=== PATIENT | female | born 1945 | race Caucasian/White ===

== ENCOUNTER 2021-07-11 22:27 | Outpatient (REF) | payer MEDICARE, SELFPAY | END 2021-07-11 22:28 | disposition home or self-care (01) | LOC: LBN 22:27 | PROVIDERS: Visit Provider Physician Assistant Medical | DX: L72.3 Sebaceous cyst (principal) | CPT/HCPCS: 87070; 87205 ==

== ENCOUNTER 2022-05-18 10:52 | Emergency (ER) | payer MEDICARE, BC, SELFPAY ==
[2022-05-18] VITALS (11 sets, daily range): BP systolic 125–151; BP diastolic 55–63; PULSE 50–68; RESP 12–20; TEMP 36.4–36.6; O2SAT 93–98
--- NOTE | 2022-05-18 10:45 | RT.EKG_ITS ---
APPROVED REPORT Exam: Resting ECG Reason for Exam: DIZZINESS Patient Location: E HR:56 bpm ECG Measurements Heart Rate 56 AXIS MT 210 P 48 QRSd 98 QRS 21 QT 438 T 47 QTc 421 Conclusion Sinus bradycardia...rate< 60
--- NOTE | 2022-05-18 11:09 | ED.GENADUL_ITS ---
Discharge Plan Disposition Patient Disposition: HOME Condition: Stable Discharge Details Clinical Impression: Dizziness Primary Care Provider: None,None ED Provider: Leydi Carbone Home Meds and New Rx's Prescriptions: New meclizine 25 mg tablet 25 mg PO BID PRN (Reason: dizziness) Qty: 14 0RF Rx Instructions: Take one tablet up to three times a day as needed for dizziness Discharge Instructions Instructions: Dizziness (ED) Additional Instructions: CT shows a possible small right posterior lobe stroke. At this time labs are largely within normal limits please take the meclizine up to 3 times daily as needed for dizziness. Follow up with primary care provider in 3-5 days. Return to ED sooner if any worsening or concerns. Increase oral fluids. Medical Decision Making 76-year-old female presents to the ER via EMS with a chief complaint of dizziness for the last 4 days. She is alert and oriented x4. She reports that she also has a slight headache and some nausea. She describes her headache as pressure. She states that she will when she stands up she is dizzy enough to where she has to hold onto the wall. Work-up ordered including EKG, serial troponins, head CT, meclizine and urinalysis. CT head within normal limits. CBC shows no leukocytosis no anemia, CMP largely within normal limits. BUN 20 creatinine 1.0 GFR 33 glucose is 114. Initial troponin within normal limits. Discussed results with patient and follow up care. Patient prescribed meclizine discuss strict return instructions follow-up care. Verbalized understanding. Patient states that she feels much better after the meclizine. This text was generated using [employer] system, please disregard any oddities of phrase or misspellings. Medical Records Medical records reviewed: Yes I reviewed the patient's medical records. Lab Data Lab results reviewed: Yes I reviewed the patient's lab results. Labs: Laboratory Tests Range/Units 05/18/22 05/18/22 05/18/22 11:00 11:00 13:08 WBC (4.4-10.8) 10^3/uL 5.93 RBC (3.93-5.22) 10^6/uL 4.21 Hgb (11.2-15.7) g/dL 14.1 Hct (36.0-46.0) % 42.4 MCV (80-95) fL 101 H MCH (27.0-33.0) pg 33.5 H MCHC (32.0-36.0) % 33.3 RDW (11.7-14.6) % 13.2 Plt Count (130-400) 10^3/uL 205 MPV (8.0-11.0) fL 10.3 Immature Gran % 0.2 Neutrophils % 62.3 Lymphocytes % 25.5 Monocytes % 9.6 Eosinophils % 1.7 Basophils % 0.7 Nucleated RBC % (0.0-0.3) % 0.0 Absolute Neutrophils (1.2-6.7) 10^3/uL 3.70 Absolute Lymphocytes (1.2-3.4) 10^3/uL 1.51 Absolute Monocytes (0.1-0.8) 10^3/uL 0.57 Absolute Eosinophils (0.0-0.7) 10^3/uL 0.10 Absolute Basophils (0.0-0.2) 10^3/uL 0.04 Sodium (136-145) mmol/L 141 Potassium (3.5-5.1) mmol/L 4.1 Chloride (98-107) mmol/L 107 Carbon Dioxide (21.0-32.0) mmol/L 27.0 Anion Gap (3-11) mmol/L 7.0 BUN (7-18) mg/dL 20 H Creatinine (0.55-1.02) mg/dL 1.0 Estimated GFR/1.73 m2 (mL/min/1.73m2) 53.62 Glucose (74-106) mg/dL 114 H Calcium (8.5-10.1) mg/dL 8.9 Magnesium (1.8-2.4) mg/dL 1.8 Total Bilirubin (0.2-1.0) mg/dL 0.6 AST (15-37) U/L 23 ALT (14-59) U/L 31 Alkaline Phosphatase (46-116) U/L 88 Troponin I (<or=60) ng/L < 50 Total Protein (6.4-8.2) g/dL 7.5 Albumin (3.4-5.0) g/dL 3.6 Urine Color (Yellow) Yellow Urine Clarity (Clear) Clear Urine pH (5-8) 6.0 Ur Specific Veteran (1.005-1.025) >= 1.030 H Urine Protein (Negative) mg/dL Negative Urine Ketones (Negative) mg/dL Negative Urine Blood (Negative) Negative Urine Nitrite (Negative) Negative Urine Bilirubin (Negative) Negative Urine Urobilinogen (Up TO 0.2) EU/dL 0.2 Ur Leukocyte Esterase (Negative) Trace H Urine RBC (0-2) HPF 0-2 Urine WBC (0-5) HPF 5-10 Ur Epithelial Cells (Negative) HPF Moderate Urine Crystals (Negative) HPF Negative Urine Bacteria (Negative) HPF Few Urine Casts (Negative) LPF Negative Urine Mucus (Negative) Negative Ur Culture Indicated? No/Sq. Contamination Urine Glucose (Negative) mg/dL Negative Range/Units 05/18/22 14:15 WBC (4.4-10.8) 10^3/uL RBC (3.93-5.22) 10^6/uL Hgb (11.2-15.7) g/dL Hct (36.0-46.0) % MCV (80-95) fL MCH (27.0-33.0) pg MCHC (32.0-36.0) % RDW (11.7-14.6) % Plt Count (130-400) 10^3/uL MPV (8.0-11.0) fL Immature Gran % Neutrophils % Lymphocytes % Monocytes % Eosinophils % Basophils % Nucleated RBC % (0.0-0.3) % Absolute Neutrophils (1.2-6.7) 10^3/uL Absolute Lymphocytes (1.2-3.4) 10^3/uL Absolute Monocytes (0.1-0.8) 10^3/uL Absolute Eosinophils (0.0-0.7) 10^3/uL Absolute Basophils (0.0-0.2) 10^3/uL Sodium (136-145) mmol/L Potassium (3.5-5.1) mmol/L Chloride (98-107) mmol/L Carbon Dioxide (21.0-32.0) mmol/L Anion Gap (3-11) mmol/L BUN (7-18) mg/dL Creatinine (0.55-1.02) mg/dL Estimated GFR/1.73 m2 (mL/min/1.73m2) Glucose (74-106) mg/dL Calcium (8.5-10.1) mg/dL Magnesium (1.8-2.4) mg/dL Total Bilirubin (0.2-1.0) mg/dL AST (15-37) U/L ALT (14-59) U/L Alkaline Phosphatase (46-116) U/L Troponin I (<or=60) ng/L < 50 Total Protein (6.4-8.2) g/dL Albumin (3.4-5.0) g/dL Urine Color (Yellow) Urine Clarity (Clear) Urine pH (5-8) Ur Specific Veteran (1.005-1.025) Urine Protein (Negative) mg/dL Urine Ketones (Negative) mg/dL Urine Blood (Negative) Urine Nitrite (Negative) Urine Bilirubin (Negative) Urine Urobilinogen (Up TO 0.2) EU/dL Ur Leukocyte Esterase (Negative) Urine RBC (0-2) HPF Urine WBC (0-5) HPF Ur Epithelial Cells (Negative) HPF Urine Crystals (Negative) HPF Urine Bacteria (Negative) HPF Urine Casts (Negative) LPF Urine Mucus (Negative) Ur Culture Indicated? Urine Glucose (Negative) mg/dL HPI General Mode of arrival: EMS . Date/Time Provider Initiated Documentation: 05/18/22 10:52 . Limitations to Documentation: no limitations . Information obtained by: patient, EMS, RN notes reviewed and old records reviewed . HPI Narrative: 76-year-old female presents to the ER via EMS with a chief complaint of dizziness for the last 4 days. She is alert and oriented x4. She reports that she also has a slight headache and some nausea. She describes her headache as pressure. She states that she will when she stands up she is dizzy enough to where she has to hold onto the wall. She reports she did hit her head approximately a month ago following a dizzy spell. Denies chest pain, SOB or any other associated symptoms. No gross neuro deficits noted on initial exam. Related Data Home Medications Medication Instructions Recorded Confirmed meclizine 25 mg tablet 25 mg PO BID PRN dizziness #14 tabs 05/18/22 Previous Rx's Medication Instructions Recorded meclizine 25 mg tablet 25 mg PO BID PRN dizziness #14 tabs 05/18/22 General Stated Complaint: Dizzy/Sync ANANT: 3 Review of Systems All systems reviewed & are unremarkable except as noted in HPI and below Constitutional Constitutional: Reports headache(s) ENT Ears, Nose, Mouth, and Throat: Reports dizziness and Reports headache(s) Neurologic Neurologic: Reports dizziness and Reports headache(s) PFSH All Active Problems (Updated 05/18/22 @ 14:22 by Leydi Carbone NP) Dizziness (Acute) Social History Smoking/Tobacco Use Status: Never Smoking risk assessment performed?: Yes Alcohol Intake: current Alcohol Intake frequency: a few times a week Alcohol type: wine Drug use: Never Substance use type: does not use Do you feel safe at home: Yes Do you feel safe in your relationship?: Yes Exam Narrative Exam Narrative: Constitutional: Alert and oriented x3. Appears stated age. Normal body habitus. Head: Normocephalic, no trauma. Eyes: Pupils PERRL, Red reflex noted, EOM's intact. Eyelids symmetrical without lesions, discharge, or swelling. ENT: Bilateral TM's WNL, External ear normal to inspection, no mastoid TTP, s welling, or erythema, Nasal turbinates WNL, no nasal discharge. Normal dentition, Posterior pharynx WNL, no exudate. Chest: RRR, Normal S1, S2, distal pulses intact. Resp: Lungs clear to auscultation bilaterally, no wheezes, rales, or rhonchi. Abdomen: Soft, non-distended, Normoactive bowel sounds all 4 quads. Musculoskeletal: Normal gait, 5/5 strength to all four extremities. Skin: No suspicious rashes or lesions. Capillary refill less than 2 sec. Neurologic: Cranial nerves II-XII intact. Alert and oriented x 3. Motor: No deficits noted. Sensory: Intact bilaterally all 4 extremities. Reflexes: DTR's intact bilaterally.. Hematologic/Lymphatic: No ecchymosis, no lymphadenopathy. Course Vital Signs Vital signs: Vital Signs Temperature 36.6 C 05/18/22 10:52 Pulse 62 05/18/22 10:52 Respiratory Rate 18 05/18/22 10:52 Blood Pressure 151/56 H 05/18/22 10:52 Pulse Oximetry 96 05/18/22 10:52 Temperature 36.6 C 05/18/22 10:52 Temperature Source Oral 05/18/22 10:52 Pulse 62 05/18/22 10:52 Respiratory Rate 18 05/18/22 10:52 Blood Pressure 151/56 H 05/18/22 10:52 Pulse Oximetry 96 05/18/22 10:52 Oxygen Delivery Method Room Air 05/18/22 10:52 Oxygen Flow Rate 0 05/18/22 10:52 Pain Level 0 05/18/22 10:52
[2022-05-18 11:18] LABS: Abs Immature Grans 0.01 10^3/uL (0.0-0.06); Absolute Basophil Count 0.04 10^3/uL (0.0-0.2); Absolute Lymphocyte Count 1.51 10^3/uL (1.2-3.4); Absolute Monocyte Count 0.57 10^3/uL (0.1-0.8); Basophils % 0.7; Eosinophils % 1.7; HCT 42.4 % (36.0-46.0); HGB 14.1 g/dL (11.2-15.7); Immature Grans % 0.2; Lymphocytes % 25.5; MCH 33.5 pg (27.0-33.0); MCHC 33.3 % (32.0-36.0); MCV 101 fL (80-95); MPV 10.3 fL (8.0-11.0); Monocytes % 9.6; Neutrophils % 62.3; Platelet Count 205 10^3/uL (130-400); RBC 4.21 10^6/uL (3.93-5.22); RDW 13.2 % (11.7-14.6); RDW-SD 49.3 fL; WBC 5.93 10^3/uL (4.4-10.8)
[2022-05-18 11:33] LABS: ALT 31 U/L (14-59); AST 23 U/L (15-37); Albumin 3.6 g/dL (3.4-5.0); Alkaline Phosphatase 88 U/L (46-116); BUN 20 mg/dL (7-18); Bilirubin, Total 0.6 mg/dL (0.2-1.0); Calcium 8.9 mg/dL (8.5-10.1); Chloride 107 mmol/L (98-107); Estimated GFR 53.62 (mL/min/1.73m2); Glucose 114 mg/dL (74-106); Magnesium 1.8 mg/dL (1.8-2.4); Potassium 4.1 mmol/L (3.5-5.1); Sodium 141 mmol/L (136-145); Total Protein 7.5 g/dL (6.4-8.2); Troponin I < 50 ng/L (<or=60)
[2022-05-18] MEDS: Meclizine 25 MG TAB PO (12:27)
--- NOTE | 2022-05-18 12:38 | DI.CT_ITS ---
Exam(s) CT HEAD WO EXAM: CT HEAD WO CLINICAL HISTORY: Dizziness, Hit head 1 month ago. TECHNIQUE: Imaging Protocol: Axial computed tomography images with coronal and sagittal reformatted images were created and reviewed COMPARISON: No exams were available for comparison FINDINGS: There is mild generalized cerebral atrophy and there is an apparent tiny right basal ganglia lacunar infarct.. No evidence of acute intracranial hemorrhage, mass effect, or midline shift. The orbital structures are unremarkable. The temporal bone structures appear intact. Calvarium: Normal. Visualized Paranasal sinuses/Mastoids: Clear. IMPRESSION: No evidence of acute intracranial process. RADIATION DOSE DELIVERED: Total DLP Total DLP !Error CTDIvol DATA REPOSITORY: All CT scans at this facility are submitted to the National Radiology Data Registry (NRDR) Dose Index Registry (DIR) with the [employer] (ACR). RADIATION OPTIMIZATION: All CT scans at this facility use at least one of these dose optimization te chniques: automated exposure control; mA and/or kV adjustment per patient size (includes targeted exa ms where dose is matched to clinical indication); or iterative reconstruction.
[2022-05-18 13:17] LABS: Bilirubin Negative (Negative); Blood Negative (Negative); Clarity Clear (Clear); Glucose Negative (Negative); Ketones Negative (Negative); Leukocyte Esterase Trace (Negative); Nitrite Negative (Negative); Specific Gravity >= 1.030 (1.005-1.025); Urobilinogen 0.2 EU/dL (Up TO 0.2)
[2022-05-18 13:27] LABS: Bacteria Few HPF (Negative); C & S Indicated? No/Sq. Contamination; Casts Negative LPF (Negative); Crystals Negative HPF (Negative); Epithelial Cells Moderate HPF (Negative); Mucus Negative (Negative); RBC 0-2 HPF (0-2)
--- NOTE | 2022-05-18 14:00 | RT.EKG_ITS ---
APPROVED REPORT Exam: Resting ECG Reason for Exam: REPEATE Patient Location: E HR:64 bpm ECG Measurements Heart Rate 64 AXIS MD 190 P 49 QRSd 95 QRS 25 QT 428 T 45 QTc 443 Conclusion Sinus rhythm...normal P axis, V-rate 60- 99
[2022-05-18 14:41] LABS: Troponin I < 50 ng/L (<or=60)
== END 2022-05-18 14:38 | disposition home or self-care (01) ==
PROVIDERS: Emergency Provider Registered Nurse Emergency
DX: R42 Dizziness and giddiness (principal); R51.9 Headache, unspecified; R11.0 Nausea
CPT/HCPCS: 80053; 93005; 99284; 70450; 81003; 81015; 83735; 84484; 85025; 93010; 99285

== ENCOUNTER 2023-01-17 21:35 | Outpatient (REF) | payer MEDICARE, BC, SELFPAY ==
[2023-01-17 22:01] LABS: Abs Immature Grans 0.02 10^3/uL (0.0-0.06); Absolute Basophil Count 0.05 10^3/uL (0.0-0.2); Absolute Eosinophil Count 0.13 10^3/uL (0.0-0.7); Absolute Lymphocyte Count 2.17 10^3/uL (1.2-3.4); Absolute Monocyte Count 0.68 10^3/uL (0.1-0.8); Absolute Neutrophil Count 4.83 10^3/uL (1.2-6.7); Basophils % 0.6; Eosinophils % 1.6; HCT 43.8 % (36.0-46.0); HGB 14.7 g/dL (11.2-15.7); Immature Grans % 0.3; Lymphocytes % 27.5; MCH 33.1 pg (27.0-33.0); MCHC 33.6 % (32.0-36.0); MCV 99 fL (80-95); MPV 10.5 fL (8.0-11.0); Monocytes % 8.6; Neutrophils % 61.4; Platelet Count 236 10^3/uL (130-400); RBC 4.44 10^6/uL (3.93-5.22); RDW 14.2 % (11.7-14.6); RDW-SD 51.9 fL; WBC 7.88 10^3/uL (4.4-10.8)
[2023-01-17 22:14] LABS: Anion Gap 11.6 mmol/L (3-11); BUN 20 mg/dL (7-18); CO2 24.4 mmol/L (21.0-32.0); CREATININE 1.3 mg/dL (0.55-1.02); Calcium 9.4 mg/dL (8.5-10.1); Chloride 106 mmol/L (98-107); Estimated GFR 41.83 (mL/min/1.73m2); Glucose 111 mg/dL (74-106); Potassium 4.4 mmol/L (3.5-5.1); Sodium 142 mmol/L (136-145)
== END 2023-01-17 21:36 | disposition home or self-care (01) ==
LOC: LBN 21:35
PROVIDERS: Visit Provider Physician Assistant Medical
DX: R03.0 Elevated blood-pressure reading, without diagnosis of hypertension (principal)
CPT/HCPCS: 80048; 85025

== ENCOUNTER 2025-04-27 09:25 | Emergency (ER) | payer MEDICARE, BC, SELFPAY ==
[2025-04-27 09:31] VITALS: BP 190/70; PULSE 69; RESP 16; TEMP 36.6; O2SAT 95
--- NOTE | 2025-04-27 10:00 | DI.RAD_ITS ---
Exam(s) XR WRIST RT COMPLETE EXAM: XR WRIST RT COMPLETE CLINICAL HISTORY: FOOST radial pain. TECHNIQUE: 2D digital imaging was performed of the right wrist. Three views were obtained. PA, lateral and oblique views were obtained. COMPARISON: No exams were available for comparison FINDINGS: BONES: There is an acute transverse fracture through the distal metaphysis of the radius. There is dorsal angulation of the fracture noted. There is a question of extension distally into the joint space on the PA view. There is a mildly displaced comminuted ulnar styloid process fracture. No bony destructive lesion is seen. JOINTS: The carpal bones are normally aligned. There are degenerative changes present at the 1st CMC joint. SOFT TISSUE: Vascular calcifications are present. There is soft tissue swelling of the wrist. IMPRESSION: 1. Fracture of the distal right radius with question of intra-articular extension. 2. Displaced ulnar styloid process fracture. DATA REPOSITORY: RADIATION DOSE DELIVERED:
--- NOTE | 2025-04-27 10:03 | W.ED.GENAD ---
Discharge Plan Disposition Patient Disposition: Home Condition: Good Discharge Details Clinical Impression: Displaced fracture of radius, Intra-articular fracture of distal end of right radius with volar angulation Primary Care Provider: Unknown,Unknown ED Provider: Rose Marie Wilkes Home Meds and New Rx's Prescriptions: Continued sertraline 100 mg tablet 100 mg PO DAILY Patient Comments: TAKE ONE TABLET BY MOUTH EVERY DAY Discharge Instructions Instructions: Forearm and Wrist Fractures ED Additional Instructions: As we discussed, you have a displaced intra-articular distal radial fracture which will need surgical intervention. Plan is for you to have surgery for fixation on Sunday. He will be contacted by the surgical schedulers regarding the exact time. In the meantime, you may use Tylenol and/or ibuprofen as needed for discomfort. Please take as directed on the packaging but do not exceed 3000 mg of Tylenol daily. Please continue with the sling to help with elevation. Leave splint in place until reevaluated orthopedics. Should you develop any new or worsening symptoms please seek care urgently once again. Referrals: Markos Pedro MD [ [facility] STAFF PHYSICIAN, Orthopaedic Surgical] Discharge Data Discharge Date/Time-TO BE ENTERED AT DEPARTURE: 04/27/25 12:42 HPI General Date/Time Provider Initiated Documentation: 04/27/25 09:57. Limitations to Documentation: no limitations. Information obtained by: patient, family and RN notes reviewed. History of Present Illness 79 year old F presents to the emergency department with the chief complaint of right wrist pain after FOOSH, described as severe, and is localized to the right and upper extremity. Patient reports no radiation. Patient started experiencing this day(s) (1) and it has been constant. Immobilization improves symptom(s), Movement worsens symptoms . Patient notes no other symptoms.. Related Data Home Medications ?Medication ?Instructions ?Recorded ?Confirmed sertraline 100 mg tablet 100 mg PO DAILY 04/27/25 04/27/25 Allergies Allergy/AdvReac Type Severity Reaction Status Date / Time No Known Allergies Allergy Verified 04/27/25 09:30 General Stated Complaint: Orthopedic ANANT: 3 Review of Systems Constitutional Constitutional: Reports as per HPI, Denies fever(s), Denies headache(s) and Denies weakness ENT Ears, Nose, Mouth, and Throat: Denies headache(s) Cardiovascular Cardiovascular: Reports as per HPI Respiratory Respiratory: Reports as per HPI and Denies cough Musculoskeletal Musculoskeletal: Reports as per HPI and Reports tingling (to right thumb) Integumentary/Breasts Skin/Breast: Reports as per HPI, Denies rash and Denies wounds Neurologic Neurologic: Reports as per HPI, Denies headache(s), Reports tingling (to right thumb), Denies paresthesias and Denies weakness Exam Const General: cooperative, healthy appearing, comfortable, no acute distress, well developed and well groomed Nutritional Appearance: average body habitus and well nourished Orientation: alert and awake Resp Effort & Inspection: normal respiratory effort, able to speak in complete sentences and no respiratory distress Cardio Rate: regular rate Rhythm: regular rhythm Skin General skin exam: ecchymosis (anterior right wrist) Neuro General: patient alert and patient awake Cognition: normal cognition Speech: speech normal Gait: normal gait Motor: muscle tone normal throughout Sensory Exam: no sensory deficits noted Extrem Elbow/forearm/wrist images:  1. Area of maximal tenderness. No pain over snuffbox or with axial loading of the thumb. 2+ distal pulses. Intact capillary refill. Sensation intact. Swelling and deformity noted to elizabeth wrist. Full ROM of elbow, on pain in elbow or shoulder with palpation. No pain with palpation of the fingers, able to move them well. Has increased pain in the wrist with movement of the fingers. Course Vital Signs Vital signs: Vital Signs Temperature 36.6 C 04/27/25 09:31 Pulse 69 04/27/25 09:31 Respiratory Rate 16 04/27/25 09:31 Blood Pressure 190/70 H 04/27/25 09:31 Pulse Oximetry 95 04/27/25 09:31 Temperature 36.6 C 04/27/25 09:31 Temperature Source Oral 04/27/25 09:31 Pulse 69 04/27/25 09:31 Respiratory Rate 16 04/27/25 09:31 Blood Pressure 190/70 H 04/27/25 09:31 Pulse Oximetry 95 04/27/25 09:31 Oxygen Delivery Method Room Air 04/27/25 09:31 Oxygen Flow Rate 0 04/27/25 09:31 Pain Level 10 04/27/25 09:34 Medical Decision Making Patient is a pleasant 79-year-old onnd-selp-djioqudi female presented with chief complaint of right wrist pain. She reports that last night she slipped while walking in her socks on the bare floor falling onto her right wrist. Describes it more as to falling directly on it rather than a FOOSH. She denies that the injury at the time of the incident. Did not strike her head, no loss of conscious. States she has some tingling in the right thumb but otherwise no sensory deficits. She does have increased pain in the wrist with movements of the fingers but has not found the actual movement itself difficult. On exam, patient appears nontoxic. She is hypertensive. She has sodas and large amount of discomfort is not taking any analgesics. She agrees to taking some oral acetaminophen. Exam of the right upper extremity reveals to be neurovascularly intact. She does have intact sensation with palpation despite having that tingling sensation over the thumb. She does not have any pain with palpation of the thumb, axial loading or pain over the anatomical snuffbox. She does have significant swelling and ecchymosis to the distal aspect of the wrist, primarily over the radius. Swelling seems to be limiting evaluation of true deformity of the wrist but high probability of fracture in this area. No pain in elbow, shoulder or hand. Primarily concerned for fx at this time based on swelling and exam. Concerned for deformity. She has some tingling in the thumb but this does not extend to elizabeth entirety of the median nerve distribution. No objective findings, good morvement, strength and sensation. No evidence of vascular compromise. XR reviewed by myelf and radiologist: IMPRESSION: 1. Fracture of the distal right radius with question of intra-articular extension. 2. Displaced ulnar styloid process fracture. Spoke with Dr. Pedro- he recommends hanging in finger traps for gentle reduction but as this is intraarticular, will need surgical reduction so no need for perfect alignment at this time. Surgery Sunday. Willis did come to evaluate patient at bedside. Discussed with patient who is in agreement wit [facility] plan. Patient was able to hang in finger traps, did appear to straighten some and patient does report that the tingling that was present initially in her thumb is since subsided. Volar splint was applied per recommendations from orthopedics or while patient remained in the finger traps. She tolerated this well and had improvement in her discomfort. Remains neurovascularly intact after application of spling and removal of the finger traps. She denied prescribed analgesics but prefers to treat with Tylenol and ibuprofen. Will fit with a sling to help encourage elevation. Return precautions were discussed. She plans for surgery on Sunday for definitive management of her displaced intra-articular distal radius fracture. All of her questions and concerns were addressed and she is in agreement this plan. PFSH All Active Problems (Updated 04/27/25 @ 12:28 by MANSI Alvarado) Intra-articular fracture of distal end of right radius with volar angulation (Acute) Displaced fracture of radius (Acute) Social History Smoking/Tobacco Use Status: Never Smoking risk assessment performed?: Yes Alcohol Intake: current Alcohol Intake frequency: a few times a week Alcohol type: wine Drug use: Never Substance use type: does not use Do you feel safe at home: Yes Do you feel safe in your relationship?: Yes
[2025-04-27] MEDS: Acetaminophen 500 MG TAB 1000 MG PO (10:24)
--- NOTE | 2025-04-27 13:14 | PGE_ITS ---
Date of Service Date of service: 04/27/25 Time of Service: 12:10 Assessment and Plan Assessment and plan (1) Intra-articular fracture of distal end of right radius with volar angulation: Status: Acute Assessment and plan: Mae is an 79-year-old active female who has a significantly displaced and intra-articular distal radius fracture about the right distal radius. I was v jenn honest with Mae that we could try a accurate closed reduction and casting which would not be inappropriate given her age and hand dominance. However, given the amount of displacement currently as well as the intra-articular nature of the fracture surgery would be a more predictable route to function. She is quite active and wants to be able to use her hand is much as possible soon as possible. Given this with the fracture pattern of an intra-articular split as well as the amount of displacement dorsally I would recommend we proceed with operative fixation of the right wrist fracture. I reviewed the tentacle details of the surgery. I discussed the potential risks to include bleeding, infection, pain, stiffness, damage to nerves and vessels, hardware prominence, malunion, nonunion. I explained the rehabilitation time and the bracing I recommend afterwards. She is in agreement all this and would like to proceed. It is important that she keeps this arm elevated as much as possible. We will plan for surgery on Sunday thus n.p.o. after midnight on Sunday. Subjective Subjective Interval history since last seen: Mae is a wxmg-[id number] female who presents today for her right wrist. She was seen in the emergency department today after a fall onto outstretched r ight wrist. She immediate pain and deformity. She reports very mild tingling of the thumb. Otherwise, no acute concerns. She was diagnosed with a displaced intra-articular distal radius fracture. She denies any previous injury issues with the left wrist. She is very active and functionally dependent. Exam Narrative Exam Narrative: No acute distress. Alert orient x 3. Right upper extremity is within a splint. She is able to demonstrate some active finger extension and flexion as well as thumb extension and flexion. Sensation grossly intact to the median, radial, ulnar nerve distribution. Cap refill less than 3 seconds. Resp Effort & Inspection: normal respiratory effort Auscultation: clear to auscultation bilaterally Cardio Rate: regular rate Rhythm: regular rhythm Objective Last Vital Signs Temp 36.6 C 04/27/25 09:31 Pulse 69 04/27/25 09:31 Resp 16 04/27/25 09:31 BP 190/70 H 04/27/25 09:31 Pulse Ox 95 04/27/25 09:31 Objective Narrative Objective Narrative: X-ray of the right wrist shows a dorsally displaced distal radius fracture with approximately 40 degrees of dorsal angulation. On the PA view there is a white type fracture pattern such that the fracture extends into the intra-articular space between the scaphoid and lunate facets with some very mild step-off seen at the level of the distal radius. There is some comminution seen posteriorly. With a shelf of bone sitting off the distal radius. No significant arthritic change seen. No carpal malalignment. Ulnar styloid fracture with mild displacement. Time Spent with Patient Time Spent with Patient: 25-34 minutes Time was spent: preparing to see the patient(eg.review tests), obtaining and/or reviewing separately otained hiistory, referring, communicating with other health primary care sales representative, indepentently interpreting results, counseling the patient and care coordination
== END 2025-04-27 12:42 | disposition home or self-care (01) ==
LOC: ER 13:00
PROVIDERS: Emergency Provider Physician Assistant
DX: S52.571A Other intraarticular fracture of lower end of right radius, initial encounter for closed fracture (principal); S52.611A Displaced fracture of right ulna styloid process, initial encounter for closed fracture; W01.0XXA Fall on same level from slipping, tripping and stumbling without subsequent striking against object, initial encounter; Y93.01 Activity, walking, marching and hiking; Y92.018 Other place in single-family (private) house as the place of occurrence of the external cause
CPT/HCPCS: 99283; 25605; 73110

== ENCOUNTER 2025-04-29 11:15 | Day surgery (SDC) | payer MEDICARE, BC, SELFPAY ==
[2025-04-29] VITALS (19 sets, daily range): BP systolic 114–150; BP diastolic 29–66; PULSE 53–77; RESP 14–23; TEMP 36.4–36.7; O2SAT 92–97; BMI 23.0
--- NOTE | 2025-04-29 07:49 | PDOC.DSDIS_ITS ---
Date of service: 04/29/25 Discharge Plan Disposition Patient Disposition: Home Condition: Good Discharge Details Reason For Visit: ORIF R Wrist Attending Provider: Markos Pedro Primary Care Provider: Dayna,[facility] Meds and New Rx's Prescriptions: New acetaminophen 500 mg tablet 1,000 mg PO TID Qty: 90 3RF ibuprofen 600 mg tablet 600 mg PO TID PRNQty: 90 3RF hydrocodone-acetaminophen 5-325 mg tablet 1 tab PO Q6H PRN (Reason: pain) Qty: 6 0RF Continued sertraline 100 mg tablet 100 mg PO DAILY Patient Comments: TAKE ONE TABLET BY MOUTH EVERY DAY No Action cholecalciferol (vitamin D3) .ROUTE vitamin C87-nqfaf acid PO lutein 40 mg capsule 40 mg PO DAILY Rx Instructions: administer with meals Ox bile 500 mg classical pearls 500 mg digestive enzymes PO mono pure omegas Discharge Instructions Additional Instructions: Wrist Fracture Fixation Discharge Instructions Activity: You should keep the hand/wrist elevated as much as possible for the first few days. You may use the other fingers as tolerated but avoid trying to do too much too soon. You may perform light activities with the splint in place. Dressing/Cast: Your splint should stay in place at all times. Do NOT get it wet. You may loosen the MANJEET wrap if you feel it is too tight and then rewrap more loosely. Medications: - You should take Tylenol and Ibuprofen for baseline pain control. - You have been prescribed a stronger pain medication, hydrocodone, for breakthrough pain. - You may apply ice over the wrist, just double bag so it doesn't get wet. Follow-up: 10-14 days Stand Alone Forms: Anesthesia Discharge Inst[facility] Cristina Albert ([facility]) Referrals: Markos Pedro MD [ [facility] STAFF PHYSICIAN, Orthopaedic Surgical] Equipment/Supplies: Splint Activity:: Elevate Remove Dressings/Wound Care:: Do Not Remove Shower/Bathe:: Cover Diet:: As Tolerated Discharge Orders Discharge Orders: Discharge Order (Routine); Ordered 04/29/25 Ordered By: Rajat Tom DS: Diagnosis Discharge Diagnosis (1) Intra-articular fracture of distal end of right radius with volar angulation: Status: Acute
--- NOTE | 2025-04-29 08:57 | ANES.PREOP_ITS ---
General Info Date of Service Date Performed: 04/29/25 Height: 5 ft 3 in Weight: 58.967 kg Body Mass Index (BMI): 23.0 Surgical Procedure: Operation Date: 04/29/25 14:10 Proposed Procedure Side Surgeon p Wrist ORIF Distal Radius Right Markos Pedro MD Meds Allergies and Home Medications Allergies Allergy/AdvReac Type Severity Reaction Status Date / Time sulfamethoxazole (From AdvReac Intermediate Other (See Verified 04/29/25 11:55 Bactrim) Comment) trimethoprim (From Bactrim) AdvReac Intermediate Other (See Verified 04/29/25 11:55 Comment) codeine AdvReac Mild Nausea Verified 04/29/25 11:55 Home Medication ?Medication ?Instructions ?Recorded sertraline 100 mg tablet 100 mg PO DAILY 04/27/25 Ox bile 04/29/25 acetaminophen 500 mg tablet 1,000 mg (2 x 500 mg) PO T ID #90 04/29/25 tabs cholecalciferol (vitamin D3) .ROUTE 04/29/25 classical pearls 04/29/25 digestive enzymes PO 04/29/25 ibuprofen 600 mg tablet 600 mg PO TID PRN #90 tabs 0 04/29/25 lutein 40 mg capsule 40 mg PO DAILY 04/29/25 mono pure omegas 04/29/25 oxycodone 5 mg tablet 5 mg PO Q4H PRN pain #12 tab s 04/29/25 vitamin B97-tftzg acid PO 04/29/25 Current Visit Medications: Current Medications Generic Name Dose Route Start Last Admin Trade Name Freq PRN Reason Stop Dose Admin Acetaminophen 650 mg 04/29/25 07:48 Acetaminophen 325 Mg Tab PO 05/29/25 07:47 Q4H PRN PRN Ringer's Solution 1,000 mls @ 80 mls/hr 04/29/25 06:00 IV 04/29/25 23:59 INFUSION ROMEO Cefazolin Sodium/Dextrose 2 gm in 50 mls @ 100 mls/hr 04/29/25 06:00 Ancef Duplex IVPB 04/29/25 23:59 PREOP ROMEO IV Miscellaneous Supplies 1 each 04/29/25 06:00 Iv Access IV 04/29/25 23:59 DIRECTED ROMEO Oxycodone HCl 5 mg 04/29/25 07:48 Oxycodone 5 Mg Tab PO 05/29/25 07:47 Q3H PRN PRN Pain Sodium Chloride 0 ml 04/29/25 06:00 Normal Saline Flush 10 Ml Syr IV 04/29/25 23:59 PRN PRN Sodium Chloride 0 ml 04/29/25 06:00 Normal Saline 10 Ml Vial IJ 04/29/25 23:59 DIRECTED PRN Sterile Water 0 ml 04/29/25 06:00 Water,Injection,Sterile 10 Ml Vial IJ 04/29/25 23:59 DIRECTED PRN PFSH Active Problems Active Problems: Problem Status Onset Code Intra-articular fracture of distal end of right radius with volar angulation Acute S52.571A Medical History Medical History (Updated 04/29/25 @ 07:50 by MANSI Luna) Depression Surgical History Surgical History (Updated 04/29/25 @ 07:50 by MANSI Luna) History of lung biopsy nodule was bx and it was benign Tobacco Smoking/Tobacco Use Status: Never Passive smoking exposure: No Alcohol Alcohol Intake: current Alcohol intake frequency: a few times a week Alcohol type: wine Substance Use Substance use: Never Substance use type: does not use Vital Signs and Lab Results Vital Signs Most Recent Vital Signs in EMR: Temp Pulse Resp BP Pulse Ox 36.4 C L 61 18 150/66 H 96 04/29/25 11:40 04/29/25 11:40 04/29/25 11:40 04/29/25 11:40 04/29/25 11:40 Anesthesia Assessment and Plan Anesthesia History Personal History: No History of Anesthesia Complications Family History: No Family History of Anesthesia Complications Exercise Tolerance Exercise Tolerance: Metabolic Equivalents>4 Cardiac & Pulmonary Exam Cardiac Exam: Normal S1/S2 Heart Sounds Pulmonary Exam: Clear Bilateral Breath Sounds Implantable Cardiac Device Does patient have a Pacemaker or an ICD?: No Airway Exam Known Difficult Airway: No Mallampati Class: 3 Mouth Opening: Normal (> 3cm) Thyromental Distance: Greater than 3 cm Neck Range of Motion: Full ROM Neck Circumference: Normal Teeth Condition: Normal Dentition ASA Classification ASA Score: ASA 2 Emergency Case?: No NPO Status NPO Status: NPO Clears >2 hours, Solids >8 hours Anesthesia Plan Resuscitation Status: Full Code Anesthesia Technique: General Anesthesia Airway Planned: LMA Monitors Used: Standard Monitors Preoperative Comments:: 79 yo female with distal radius fracture. Sig PMHx: depression (sertraline). never smoker, occ EtOH. Discussed risks and benefits of regional anesthesia, she would prefer to no have regional unless she needs it as a rescue.
[2025-04-29] MEDS: Lactated Ringers 1,000 ML 80 ML IV (12:13)
[2025-04-29] MEDS: ceFAZolin 2 GM/50 ML BAG IVPB (13:07)
[2025-04-29] MEDS: Bupivacaine 0.5% Pres-Free W/EPI 30 ML VIAL (13:37)
--- NOTE | 2025-04-29 14:40 | W.ANESPOSTOP ---
Postoperative Evaluation Date, Time and Location Date Performed: 04/29/25 Time Performed: 14:40 Patient Location: Day Surgery Unit Vital Signs Most Recent Imported Vital Signs: Most Recent Vital Signs Temp Pulse Resp BP Pulse Ox 36.7 C 61 18 150/66 H 96 04/29/25 14:28 04/29/25 11:40 04/29/25 11:40 04/29/25 11:40 04/29/25 11:40 Pain Score Most Recent Pain Score: Most Recent Pain Score Pain Level 0 04/29/25 11:40 Assessment Mental Status: Awake (Alert & Oriented to Patient Baseline) Airway and Respiratory Function: Patent airway with normal (patient baseline) respiratory exam Cardiovascular Function: Hemodynamically Stable Hydration Status: Adequately Hydrated Nausea & Vomiting: No Nausea or Vomiting Pain: Pain is tolerable per patient Peripheral Nerve Block: Patient did not receive a nerve block
--- NOTE | 2025-04-29 14:45 | ROE_ITS ---
Operative Note Operative Note PRE-OP DIAGNOSIS: Right Distal Radius Fracture POST-OP DIAGNOSIS: same PROCEDURE: Open Reduction and Internal Fixation of Right Distal Radius SURGEON: Markos Pedro SURFACE ROOM SHOP OPTICIAN: Rajat Tom ANESTHESIA TYPE: General LMA/ETT Refer to Anesthesia Record ESTIMATED BLOOD LOSS: 10 PATHOLOGY: none sent TOURNIQUET TIME: 35 COMPLICATIONS: None Patient was transported to: PACU Patient's condition: stable Indications: Mae is a 79 year old female who I have seen for a distal radius fracture. Given the deformity, displacement, fracture pattern, and effect on daily function, I recommended surgical fixation. I reviewed the risk of the procedure to include bleeding, infection co-pay, stiffness, damage to nerves and vessels, damage to muscles and tendons, malunion, nonunion, hardware prominence, tendon rupture, need for repeat procedures. Despite these risks, the patient elected to proceed. Findings: There is a distal radius fracture which had one primary epiphyseal fragment. It was reduced and fixed with a Synthes volar locking plate. Procedure Description: Mae was greeted in the preoperative holding area. The correct patient and site was confirmed and marked. The history and physical was updated. The consent was reviewed the patient and signed. The patient was taken to the operating room and placed in the supine position. All bony prominences were well-padded. The right arm was placed onto a radiolucent hand table. A nons terile tourniquet was placed high up on the arm. Prophylactic antibiotics in the form of cefazolin were administered. The right arm was prepped with ChloraPrep and draped in a standard fashion. A timeout was performed for safe surgery. The arm was exsanguinated and the tourniquet was inflated to 250 mmHg where it stayed for 35 minutes. A standard longitudinal incision was made overlying the flexor carpi radialis tendon starting at the distal wrist crease and moving proximally. The skin was incised sharply. The flexor carpi radialis tendon and its sheath is identified. The sheath was opened. The tendon was moved ulnarly in the floor of the sheath was incised. Blunt dissection the flexor pollicis longus muscle belly and tendon were also made radially exposing the pronator quadratus and the distal radius. The printer quadratus was elevated with an ulnar-based flap. This exposed the volar distal radius and the fracture. A grace elevator was used for full exposure of the volar surface of the distal radius. The primary fracture line was exposed. Full was found to be an intra- articular split which could be a very subtle crack but no significant step-off seen into the articular space. Using a series of elevators, curettes, and knife, the fracture was fully debrided of any fibrous tissue and callus formation. I used a freer elevator to help mobilize the fragments. I then performed a closed reduction. Using gentle traction and fracture manipulation, this reduction was held. Fluoroscopic images were used to confirm adequate reduction. I then placed a K wire through the radial styloid into the right metaphysis which held the fracture in a reduced position. Then, an appropriately sized Synthes volar locking plate was then placed onto the bony surface of the distal radius. This was then held there with a distal radius clamp sandwiching the plate to the distal segment. A single K wire was placed through the distal end. Fluoroscopy was once again used to confirm appropriate positioning of the plate on the distal radius. A reduction K wire was placed into the slotted hole on the shaft but not tightened all the way to allow for manipulation of the distal segment onto the proximal shaft. A single nonlocking screw was placed to the distal portion of the plate securing the plate against the bone of the distal radial metaphysis. Once again, the plate was evaluated to make sure it was aligned appropriately. The single screw was also checked to make sure it was in appropriate positioning for trajectory of future screws. The remainder of the screws within the volar locking plate were filled with locking screws. These were made sure not to penetrate the dorsal cortex. Once these were applied the proximal portion of the plate was further reduced down onto the shaft, which further reduce the distal segment. This was held in position with a tightened reduction K wire. Fluoroscopy was then used against confirm appropriate reduction. Nonlocking screws were placed within the 3 shaft screw holes. Final x-rays were obtained which demonstrated adequate reduction and positioning of hardware. The dorsal sunrise view was also obtained to ensure correct sizing of screws. The single nonlocking screw distally was placed in a locking screw slightly shorter. The wound was then thoroughly irrigated. The pronator quadratus was reapproximated with a 2-0 Vicryl. The tourniquet was released and there was no notable vascular injury. The fingers were warm and well-perfused. The deep dermal layer was closed with a 2-0 Vicryl. The skin was closed with 4- 0 nylon. The wound was dressed with Xeroform, 4 x 4's, web roll. A short arm splint was applied. At the end the case all counts are correct. Patient was transferred back to the PACU in stable condition. Date of Procedure: 04/29/25
--- NOTE | 2025-04-29 14:59 | DI.RAD_ITS ---
Exam(s) XR WRIST RT LIMITED EXAM: XR WRIST RT LIMITED CLINICAL HISTORY: fracture of distal end of right radius. TECHNIQUE: 2D digital imaging was performed. COMPARISON: No exams were available for comparison FINDINGS: Fluoroscopy was provided during orthopedic surgery placement of volar fixation plate across distal radial fracture site. See procedure report for details. IMPRESSION: Radiation exposure index/cumulative dose:Jocelyne,r= 0.2356mGy DATA REPOSITORY: RADIATION DOSE DELIVERED:
== END 2025-04-29 16:12 | disposition home or self-care (01) ==
LOC: SUR 11:16
PROVIDERS: Visit Provider Student in an Organized Health Care Education/Training Program
PROC: (CPT 25608; principal; 2025-04-29 14:00)
DX: S52.571A Other intraarticular fracture of lower end of right radius, initial encounter for closed fracture (principal); W19.XXXA Unspecified fall, initial encounter
CPT/HCPCS: 25608; C1889; 76000; 73100; J0131; J0690; J1100; J1885; J2371; J2405; J2704

== ENCOUNTER 2025-05-11 15:57 | Outpatient (CLI) | payer MEDICARE, BC, SELFPAY ==
--- NOTE | 2025-05-11 15:15 | DI.RAD_ITS ---
Exam(s) XR WRIST RT COMPLETE EXAM: XR WRIST RT COMPLETE CLINICAL HISTORY: S/P ORIF R DISTAL RAD FX. TECHNIQUE: 2D digital imaging was performed. Three views. COMPARISON: CR XR WRIST RT COMPLETE from 04/27/2025 CR XR WRIST RT LIMITED from 04/29/2025 FINDINGS: BONES: Stable fracture and hardware alignment. No bony destructive lesion is seen. JOINTS: The carpal bones are normally aligned. Mild degenerative changes again noted. SOFT TISSUE: Normal. IMPRESSION: Stable fracture and hardware alignment. DATA REPOSITORY: RADIATION DOSE DELIVERED:
== END 2025-05-11 15:58 | disposition home or self-care (01) ==
LOC: DIORS 15:58
PROVIDERS: Visit Provider Physician Assistant
DX: S52.501D Unspecified fracture of the lower end of right radius, subsequent encounter for closed fracture with routine healing (principal); X58.XXXD Exposure to other specified factors, subsequent encounter
CPT/HCPCS: 99024; 73110

== ENCOUNTER 2025-06-09 11:00 | Outpatient (CLI) | payer MEDICARE, BC, SELFPAY ==
--- NOTE | 2025-06-09 09:45 | DI.RAD_ITS ---
Exam(s) XR WRIST RT LIMITED EXAM: XR WRIST RT LIMITED CLINICAL HISTORY: S/P ORIF R WRIST. TECHNIQUE: 2D digital imaging was performed. Three images were obtained. PA and lateral views were obtained. COMPARISON: CR XR WRIST RT LIMITED from 04/29/2025 CR XR WRIST RT COMPLETE from 05/11/2025 FINDINGS: BONES: There are stable post operative changes of sideplate and screws transfixing the distal right radial fracture present. No new fracture or dislocation. There is again seen a displaced comminuted ulnar styloid process fracture. JOINTS: The joint spaces are well maintained. Degenerative changes are seen at the 1st CMC joint. SOFT TISSUE: Normal. IMPRESSION: Stable postoperative changes. DATA REPOSITORY: RADIATION DOSE DELIVERED:
== END 2025-06-09 11:01 | disposition home or self-care (01) ==
LOC: DIORS 11:01
PROVIDERS: Visit Provider Physician Assistant
DX: S52.571D Other intraarticular fracture of lower end of right radius, subsequent encounter for closed fracture with routine healing (principal); X58.XXXD Exposure to other specified factors, subsequent encounter
CPT/HCPCS: 99024; 73100

== ENCOUNTER 2025-07-20 10:16 | Outpatient (CLI) | payer MEDICARE, BC, SELFPAY ==
--- NOTE | 2025-07-20 10:00 | DI.RAD_ITS ---
Exam(s) XR WRIST RT LIMITED EXAM: XR WRIST RT LIMITED CLINICAL HISTORY: F/U R WRIST FX. TECHNIQUE: 2D digital imaging was performed of the right wrist. Two views were obtained. PA and lateral views were obtained. COMPARISON: CR XR WRIST RT LIMITED from 06/09/2025 FINDINGS: BONES: There is again seen a sideplate and screws in the distal radius. The fracture appears well healed. There has been no change in alignment of the displaced ulnar styloid process fracture. No new fractures present. No bony destructive lesion is seen. JOINTS: The carpal bones are normally aligned. There are mild degenerative changes seen in the wrist particularly at the 1st CMC joint. SOFT TISSUE: Normal. IMPRESSION: Healed distal radial fracture. Stable ulnar styloid process fracture. DATA REPOSITORY: RADIATION DOSE DELIVERED:
== END 2025-07-20 10:17 | disposition home or self-care (01) ==
LOC: DIORS 10:16
PROVIDERS: Visit Provider Physician Assistant
DX: S52.571D Other intraarticular fracture of lower end of right radius, subsequent encounter for closed fracture with routine healing (principal); X58.XXXD Exposure to other specified factors, subsequent encounter
CPT/HCPCS: 99024; 73100